=== PATIENT | female | born 1965 | race American Indian/Alaskan Native ===

== ENCOUNTER 2016-09-30 17:21 | Emergency (ER) | payer SELFPAY | END 2016-09-30 20:30 | disposition left against medical advice (07) | LOC: ED 17:21 | DX: R52 Pain, unspecified (principal); Z53.21 Procedure and treatment not carried out due to patient leaving prior to being seen by health care provider ==

== ENCOUNTER 2018-01-15 16:15 | Outpatient (CLI) | payer OTHER ==
--- NOTE | 2018-01-15 17:41 | XRay Report ---
FINAL REPORT EXAM: XR KNEE 3V LT HISTORY: PAIN IN LEFT KNEE TECHNIQUE: Three views of the left knee PRIORS: None. FINDINGS: There is mild patellofemoral joint space narrowing with small marginal femoral osteophytes. No acute fracture identified. No dislocation seen. There is no evidence for joint effusion. IMPRESSION: DJD of the patellofemoral joint space
--- NOTE | 2018-01-15 17:44 | XRay Report ---
FINAL REPORT EXAM: XR HAND BILAT 3+V HISTORY: PAIN IN RIGHT HAND AND LEFT HAND TECHNIQUE: Bilateral hands 7 views PRIORS: None. FINDINGS: No fracture is identified. No dislocation seen. Joint spaces are within normal limits. No erosive bony change identified. Carpal bones maintain normal alignment. Distal radius and ulna are intact. No radiopaque foreign bodies seen. IMPRESSION: Negative bilateral hand series
== END 2018-01-15 16:16 | disposition home or self-care (01) ==
LOC: XRAY 16:15
PROVIDERS: ATTEND Internal Medicine
DX: Z02.71 Encounter for disability determination (principal); M79.641 Pain in right hand; M79.642 Pain in left hand